=== PATIENT | female | born 2000 | race Caucasian/White ===

== ENCOUNTER 2019-09-26 04:54 | Inpatient (IN) | payer OTHER ==
[2019-09-26] MEDS ORDERED: Terbutaline 1 MG/ML SDV SUBCUT PRN (12:13)
[2019-09-26] MEDS ORDERED: Misoprostol 200 MCG Tab PO PRN (12:13)
[2019-09-26] MEDS ORDERED: Dinoprostone 10 MG Insert VAG PRN (12:13)
[2019-09-26] MEDS ORDERED: Tranexamic Acid 1,000 MG in Sodium Chloride 0.9% 100 ML IV PRN (12:13)
[2019-09-26] MEDS ORDERED: Lidocaine 1% 50 ML MDV INJECT PRN (12:13)
[2019-09-26] MEDS ORDERED: Sodium Chloride 0.9% 2.5 ML Syringe FLUSH PRN (12:13)
[2019-09-26] MEDS ORDERED: Sodium Chloride 0.9% 10 ML SDV IV PRN (12:13)
[2019-09-26] MEDS ORDERED: Ondansetron 4 MG/2 ML SDV IVPUSH PRN (12:13)
[2019-09-26] MEDS ORDERED: Methylergonovine 0.2 MG/1 ML Amp IM PRN (12:13)
[2019-09-26] MEDS ORDERED: Water For Irrigation,Sterile 1,000 ML Container IRR PRN (12:13)
[2019-09-26] MEDS ORDERED: Sodium Chloride 0.9% 10 ML Syringe FLUSH PRN (12:13)
[2019-09-26] MEDS ORDERED: Carboprost Tromethamine 250 MCG/1 ML Amp IM PRN (12:13)
[2019-09-26] MEDS ORDERED: Nalbuphine 10 MG/1 ML Vial IVPUSH PRN (12:13)
[2019-09-26] MEDS ORDERED: Oxytocin/0.9 % Sodium Chloride 30 UNIT/500 ML BAG IV SCH ×2 (12:15)
[2019-09-26] MEDS ORDERED: Misoprostol 25 MCG (1/4 of 100 MCG) Tab VAG PRN (16:00)
[2019-09-26] MEDS: Misoprostol 25 MCG (1/4 of 100 MCG) Tab VAG PRN (20:35)
[2019-09-27] MEDS: Butorphanol 1 MG/ML SDV IVPUSH PRN ×2 (02:15→10:47)
[2019-09-27] MEDS: Misoprostol 25 MCG (1/4 of 100 MCG) Tab VAG PRN ×4 (02:27→21:12)
[2019-09-27] MEDS: Lactated Ringers 1,000 ML IV SCH (02:59)
[2019-09-27] MEDS ORDERED: hydrOXYzine Pamoate 25 MG Cap PO ONE (10:55)
[2019-09-27] MEDS: hydrOXYzine Pamoate 25 MG Cap PO PRN ×2 (16:53→22:28)
[2019-09-28] MEDS: Misoprostol 25 MCG (1/4 of 100 MCG) Tab VAG PRN (03:09)
[2019-09-28] MEDS: Butorphanol 1 MG/ML SDV IVPUSH PRN ×3 (08:20→17:52)
[2019-09-28] MEDS: Lactated Ringers 1,000 ML IV SCH ×3 (11:51→20:12)
[2019-09-28] MEDS ORDERED: Ropivacaine HCl/PF 100 ML ONE (19:40)
[2019-09-28] MEDS ORDERED: fentaNYL 100 MCG/2 ML SDV ONE (19:40)
--- NOTE | 2019-09-28 20:05 | PCM.PREANE ---
Preanesthetic Assessment - Anesthesia/Transfusion/Family Hx Anesthesia History: Prior Anesthesia Without Reaction Family History of Anesthesia Reaction: No Transfusion History: No Prior Transfusion(s) - Physical Assessment NPO Status Date: 09/28/19 NPO Status Time: 12:00 Height: 1.47 m Weight: 87.09 kg ASA Class: 1 - Lab Values: Laboratory Last Values WBC 11.98 K/uL (4.0-11.0) H 09/26/19 13:00 RBC 4.14 M/uL (4.30-5.90) L 09/26/19 13:00 Hgb 12.2 g/dL (12.0-16.0) 09/26/19 13:00 Hct 37.6 % (36.0-46.0) 09/26/19 13:00 MCV 90.8 fL (80.0-98.0) 09/26/19 13:00 MCH 29.5 pg (27.0-32.0) 09/26/19 13:00 MCHC 32.4 g/dL (31.0-37.0) 09/26/19 13:00 RDW Std Deviation 51.1 fl (28.0-62.0) 09/26/19 13:00 RDW Coeff of Mirella 16 % (11.0-15.0) H 09/26/19 13:00 Plt Count 234 K/uL (150-400) 09/26/19 13:00 MPV 12.10 fL (7.40-12.00) H 09/26/19 13:00 Nucleated RBC % 0.0 /100WBC 09/26/19 13:00 Nucleated RBCs # 0 K/uL 09/26/19 13:00 Blood Type A POSITIVE 09/26/19 13:00 Antibody Screen NEGATIVE 09/26/19 13:00 - Allergies Allergies/Adverse Reactions: Allergies Allergy/AdvReac Type Severity Reaction Status Date / Time hayfever Allergy Difficulty Uncoded 09/26/19 12:25 Breathing - Acknowledgements Anesthesia Type Planned: Epidural Pt an Appropriate Candidate for the Planned Anesthesia: Yes Alternatives and Risks of Anesthesia Discussed w Pt/Guardian: Yes Pt/Guardian Understands and Agrees with Anesthesia Plan: Yes PreAnesthesia Questionnaire Respiratory History: Reports: Asthma 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: Endocrine/Metabolic History: Reports: Obesity/BMI 30+ Dermatologic History: Reports: None - Past Surgical History Respiratory Surgical History: Reports: None Endocrine Surgical History: Reports: None Dermatological Surgical History: Reports: Other (See Below) - SUBSTANCE USE Smoking Status *Q: Never Smoker Second Hand Smoke Exposure: No Recreational Drug Use History: No - HOME MEDS Home Medications: Home Meds Inhaler For Asthma 0 08/05/15 [History] Albuterol Sulfate [Proair Digihaler] 09/26/19 [History] Vits #93/Iron Fum/FA [ Formula Tablet] 1 each PO DAILY [History] - CURRENT (IN HOUSE) MEDS Current Meds: Current Medications Butorphanol Tartrate (Stadol) 1 mg IVPUSH Q1H PRN PRN Reason: Pain Last Admin: 09/28/19 17:52 Dose: 1 mg Carboprost Tromethamine (Hemabate Ds) 250 mcg IM ASDIRECTED PRN PRN Reason: Post Hemorrhage Dinoprostone (Cervidil) 10 mg VAG ONETIME PRN PRN Reason: Cervical Ripening Hydroxyzine Pamoate (Vistaril) 50 mg PO Q6H PRN PRN Reason: Pain Last Admin: 09/27/19 22:28 Dose: 50 mg Lactated Ringer's (Ringers, Lactated) 1,000 mls @ 150 mls/hr IV ASDIRECTED LUIS DANIEL Last Admin: 09/28/19 14:28 Dose: 125 mls/hr Oxytocin/Sodium Chloride (Oxytocin 30 Unit/500 Ml-Ns) 30 unit in 500 mls @ 999 mls/hr IV TITRATE LUIS DANIEL Oxytocin/Sodium Chloride (Oxytocin 30 Unit/500 Ml-Ns) 30 unit in 500 mls @ 2 mls/hr IV TITRATE LUIS DANIEL; Protocol Last Titration: 09/28/19 16:20 Dose: 6 munits/min, 6 mls/hr Tranexamic Acid 1,000 mg/ (Sodium Chloride) 110 mls @ 660 mls/hr IV ONETIME PRN PRN Reason: Bleeding Lidocaine HCl (Xylocaine 1%) 50 ml INJECT ONETIME PRN PRN Reason: Laceration repair Methylergonovine Maleate (Methergine) 0.2 mg IM ASDIRECTED PRN PRN Reason: Post Hemorrhage Misoprostol (Cytotec) 200 mcg PO ONETIME PRN PRN Reason: Post Hemorrhage Misoprostol (Cytotec) 25 mcg VAG ONETIME PRN PRN Reason: Cervical Ripening Last Admin: 09/26/19 16:41 Dose: 25 mcg Misoprostol (Cytotec) 25 mcg VAG Q4H PRN PRN Reason: Cervical Ripening Last Admin: 09/28/19 03:09 Dose: 25 mcg Nalbuphine HCl (Nubain) 10 mg IVPUSH Q1H PRN PRN Reason: Pain (severe 7-10) Ondansetron HCl (Zofran) 4 mg IVPUSH Q6H PRN PRN Reason: Nausea/Vomiting Last Admin: 09/27/19 10:47 Dose: 4 mg Sodium Chloride (Saline Flush) 10 ml FLUSH ASDIRECTED PRN PRN Reason: Keep Vein Open Sodium Chloride (Saline Flush) 2.5 ml FLUSH ASDIRECTED PRN PRN Reason: Keep Vein Open Sodium Chloride (Normal Saline) 10 ml IV ASDIRECTED PRN PRN Reason: IV Use Sterile Water (Sterile Water For Irrigation) 1,000 ml IRR ASDIRECTED PRN PRN Reason: delivery Last Admin: 09/28/19 06:39 Dose: 1,000 ml Terbutaline Sulfate (Brethine) 0.25 mg SUBCUT ASDIRECTED PRN PRN Reason: Tacysystole Discontinued Medications Fentanyl (Sublimaze) Confirm Administered Dose 100 mcg .ROUTE .STK-MED ONE Stop: 09/28/19 19:41 Hydroxyzine Pamoate (Vistaril) 50 mg PO ONETIME ONE Stop: 09/27/19 10:56 Last Admin: 09/27/19 11:11 Dose: 50 mg Ropivacaine (Naropin 0.2%) Confirm Administered Dose 100 mls @ as directed .ROUTE .STK-MED ONE Stop: 09/28/19 19:41
--- NOTE | 2019-09-28 20:08 | PCM.PRNOTE ---
- Free Text/Narrative Note: Anes Note Patietn requests epidural for L&D. Sitting position, level L3-L4 midlines approach. Sterile technique. Chloraprep scrub to lumbar area. Sterile fenestrated drape applied. Epidural space easily achieved using JAREK technique. JAREK at 4 cm. Cath threaded 5 cm with ease. Cath secured at 10 cm at skin using sterile clear adhesive dressing. Test 1942 3 cc 1.5 lido with epi negative 1944 10 cc 0.2% ropivicaine with 1 mcg cc fentayl in slow divided doses. 1949 Pump started with 90 cc same solution at 8 cc hr with 6 cc q 20 min prn bolus. Nishant well. 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
[2019-09-29] MEDS ORDERED: Ampicillin/Sulbactam Na 3 GM in Sodium Chloride 0.9% 100 ML IV ONE (03:36)
[2019-09-29] MEDS ORDERED: Acetaminophen 500 MG Tab PO ONE (03:36)
[2019-09-29] MEDS ORDERED: Sodium Chloride 0.9% 100 ML ONE (03:41)
[2019-09-29] MEDS ORDERED: Acetaminophen 650 MG Supp RECTAL ONE (04:08)
[2019-09-29] MEDS ORDERED: Bupivacaine 0.5% 30 ML SDV ONE (04:29)
[2019-09-29] MEDS ORDERED: Morphine PF 10 MG/10 ML SDV ONE (04:30)
[2019-09-29] MEDS ORDERED: Sodium Chloride 0.9% 20 ML ONE (04:30)
[2019-09-29] MEDS ORDERED: ceFAZolin 1 GM Vial ONE (04:30)
[2019-09-29] MEDS ORDERED: Ketorolac 30 MG/ML SDV ONE (04:36)
[2019-09-29] MEDS ORDERED: Oxytocin 10 Units/1 ML SDV ONE (04:36)
[2019-09-29] MEDS ORDERED: Ondansetron 4 MG/2 ML SDV ONE (04:36)
[2019-09-29] MEDS ORDERED: Phenylephrine/Normal Saline 100 MCG/ML 10 ML Syringe ONE (04:36)
[2019-09-29] MEDS: Ketorolac 30 MG/ML SDV IVPUSH SCH ×3 (05:00→18:23)
[2019-09-29] MEDS ORDERED: Octyl 2-Cyanoacrylate 1 Tube ONE (05:15)
[2019-09-29] MEDS ORDERED: Nalbuphine 10 MG/1 ML Vial IVPUSH PRN (05:27)
[2019-09-29] MEDS ORDERED: Ondansetron 4 MG/2 ML SDV IVPUSH PRN ×2 (05:27→05:37)
[2019-09-29] MEDS ORDERED: diphenhydrAMINE 50 MG/ML SDV IVPUSH PRN ×2 (05:27→05:37)
[2019-09-29] MEDS ORDERED: fentaNYL 100 MCG/2 ML SDV IVPUSH PRN (05:27)
[2019-09-29] MEDS ORDERED: Naloxone 0.4 MG/ML Syringe IVPUSH PRN (05:27)
[2019-09-29] MEDS ORDERED: Acetaminophen/oxyCODONE 325-5 MG Tab PO PRN ×2 (05:27→05:37)
--- NOTE | 2019-09-29 05:35 | PCM.OPNOTE ---
- General Post-Op/Procedure Note Date of Surgery/Procedure: 09/29/19 Operative Procedure(s): primary low transverse Findings: Liveborn male 06/16 3330 grams Pre Op Diagnosis: 41 3/7 weeks, intolerance to labor Post-Op Diagnosis: Same Anesthesia Technique: Epidural Primary Surgeon: Monse Zavala Anesthesia Provider: Javid Soto Instrument Repair Specialist: Matt Bello Pathology: placenta to pathology. Fluid Replacement, Intraop: 1,500 Output, Urine Amount: 80 EBL in mLs: 500 Complications: None Known Condition: Good
[2019-09-29] MEDS ORDERED: Oxytocin 10 Units/1 ML SDV IM PRN (05:37)
[2019-09-29] MEDS ORDERED: Misoprostol 200 MCG Tab RECTAL PRN (05:37)
[2019-09-29] MEDS ORDERED: Bisacodyl 10 MG Supp RECTAL PRN (05:37)
[2019-09-29] MEDS ORDERED: Tranexamic Acid 1,000 MG in Sodium Chloride 0.9% 100 ML IV PRN (05:37)
[2019-09-29] MEDS ORDERED: Lanolin 100% Cream 7 GM Tube TOP PRN (05:37)
[2019-09-29] MEDS ORDERED: Oxytocin/Lactated Ringers 30 UNIT/500 ML BAG IV SCH (05:45)
--- NOTE | 2019-09-29 06:16 | PCM.POSTAN ---
POST ANESTHESIA ASSESSMENT - MENTAL STATUS Mental Status: Alert - VITAL SIGNS Vital Signs: Last Vital Signs Temp 37.1 C 09/29/19 05:30 Pulse 74 09/29/19 06:10 Resp 22 H 09/29/19 06:10 BP 93/36 L 09/29/19 06:10 Pulse Ox 96 09/29/19 06:10 - RESPIRATORY Respiratory Status: Respiratory Rate WNL - CARDIOVASCULAR CV Status: Pulse Rate WNL - GASTROINTESTINAL GI Status: No Symptoms - POST OP HYDRATION Hydration Status: Adequate & Stable
[2019-09-29] MEDS: Lactated Ringers 1,000 ML IV SCH ×3 (06:46→20:33)
--- NOTE | 2019-09-29 07:12 | OR ---
SURGEON: Monse Zavala M.D. DATE OF PROCEDURE: 09/29/2019 PREOPERATIVE DIAGNOSES: 1. 41 and 3/7 weeks intrauterine . 2. intolerance to labor. POSTOPERATIVE DIAGNOSES: 1. 41 and 3/7 weeks intrauterine . 2. intolerance to labor. PROCEDURE: Primary low-transverse section. ANESTHESIA: Epidural. ESTIMATED BLOOD LOSS: 500 mL. FLUIDS: 1500 mL crystalloid. FINDINGS: Live-born male, scores 9 and 9, weight of 3330 g, ROP position, normal- appearing pelvis. COMPLICATIONS: None known. DISPOSITION: Stable to recovery. BRIEF HISTORY: This is a 19-year-old female, G1, P0. She presents at 41 weeks' gestation for induction of labor. Plan initially was to do Cervidil as she does have some [id number] asthma. However, Cervidil was unavailable, and after discussion of options, she did desire to proceed with Cytotec. She was initially closed, thick, and high with normal heart tones. She received 5 doses of Cytotec. At this point, her cervix was 1 cm, 50%, -2 station. A balloon catheter could be placed and was filled with 60 mL of saline on each side of the cervix. She was started on Pitocin, and within 5 to 6 hours, she was 4 cm, 40% effaced, -2 station. She was started on Pitocin. At approximately 5 p.m. when she was 5 to 6 cm, artificial rupture of membranes was performed with clear fluid noted. She did receive an epidural for pain control. She had received multiple doses of stadol throughout labor as well as Vistaril as she was trying to avoid epidural. After the epidural, she progressed to a 9+ dilatation. She was still at a -2 station. She was felt to be complete and therefore was allowed to push. She pushed over a 45-minute time period with severe deep variable decelerations with rebound tachycardia with each push. She was noted to be in the AKIN position. I did attempt to rotate to AKIN and the head partially turned, but I was unable to completely rotate. At this point, given no descent of the head, the fact that there was intolerance to pushing with category 2 bordering on category 3 heart tones which did recover when she discontinued pushing. Additionally, her temperature was 100.3, and she had chills. She was given Tylenol and Unasyn. She was given option for rest followed by repeat attempt at pushing, restarting Pitocin, or proceeding with a primary . She desires to proceed with a primary with risks discussed including bleeding, infection, injury to bowel, bladder, blood vessels or other organs, risk of thromboembolic event, and risk of anesthesia. Understanding all these risks, she does desire to proceed. DESCRIPTION OF PROCEDURE: With the patient in left tilt position, under adequate epidural analgesia, the abdomen was prepped with chlorhexidine and draped in a usual fashion for abdominal surgery. SCDs were in place. Heart catheter had been placed. She had received Unasyn prior due to the temperature of 100.3, but also received Ancef 2 g immediately prior to the surgery. After documentation of adequate analgesia and an appropriate time-out had been held, a transverse curvilinear incision was made 2 cm cephalad from the pubic symphysis and carried through the subcutaneous tissue to the fascia, which was scored transversely in the midline. The fascial incision was extended laterally using curved Serrano scissors and the fascia was elevated from the underlying rectus muscle using sharp and blunt dissection. The rectus muscles were in the midline using sharp and blunt dissection. A finger was used to enter the peritoneal cavity. The incision was extended using blunt dissection. The Lamonte O retractor was placed. The visceroperitoneum over the lower uterine segment was incised to develop an adequate bladder flap. A transverse curvilinear incision was made over the lower uterine segment and a finger was used to enter the amniotic cavity. Clear fluid was noted. The incision was extended cephalad caudad using blunt dissection. The head was delivered via the uterine incision without any difficulty. The was bulb suctioned by nose and mouth. The remainder of the was delivered, and after 1-minute, the cord was doubly clamped and cut. The infant was handed to the nurse in attendance at delivery. The infant was a liveborn male, score 9 and 9, weighing 3330 g. Cord blood was collected for cord ABGs as well as routine cord blood sampling. Pitocin was initiated after delivery of the to assist with delivery. The placenta was delivered with manual assistance. The uterus was cleaned with a dry laparotomy tape. The uterine incision was closed with a running lock suture of 0 Polysorb followed by an imbricating layer of 0 Polysorb. There was a single [id number] suture placed in the midline for complete hemostasis. The paracolic gutters and posterior cul-de-sac were cleaned with a dry laparotomy tape. The tubes and ovaries were inspected and appeared normal. The uterine incision was inspected and was hemostatic. Therefore, the Lamonte O retractor was removed. The uterine incision was once again inspected and remained hemostatic. The rectus muscle and peritoneum were loosely approximated in the midline using a running mattress suture of 0 Polysorb. The posterior aspect of the fascia was inspected and areas of bleeding that were noted were cauterized. The fascial incision was closed with a running suture of 0 Polysorb. Subcutaneous tissue was irrigated. Any areas of bleeding that were noted were cauterized. The skin was closed with a running subcuticular suture of 3-0 Monocryl followed by Dermabond. Final sponge, needle, and instrument counts were reported as correct. There were no known complications. Mother and baby are in recovery in good condition. JAX UMAÑA /[id number]
[2019-09-29] MEDS: Ampicillin/Sulbactam Na 1.5 GM in Sodium Chloride 0.9% 50 ML IV SCH ×3 (10:32→18:33)
[2019-09-29] MEDS: Docusate Sodium 100 MG Cap PO SCH ×2 (11:04→20:30)
[2019-09-30] MEDS: Ampicillin/Sulbactam Na 1.5 GM in Sodium Chloride 0.9% 50 ML IV SCH ×4 (00:11→18:22)
[2019-09-30] MEDS: Ketorolac 30 MG/ML SDV IVPUSH SCH ×2 (00:15→05:52)
[2019-09-30] MEDS: Lactated Ringers 1,000 ML IV SCH (05:50)
--- NOTE | 2019-09-30 09:19 | PCM.PNPP ---
- General Info Date of Service: 09/30/19 Functional Status: Reports: Pain Controlled, Tolerating Diet, Ambulating, Other (Passed flatus. Has not voided since sumner was removed. Baby is having some trouble latching. ) - Review of Systems General: Reports: No Symptoms HEENT: Reports: No Symptoms Pulmonary: Reports: No Symptoms Cardiovascular: Reports: No Symptoms Gastrointestinal: Reports: No Symptoms Genitourinary: Reports: No Symptoms Musculoskeletal: Reports: No Symptoms Skin: Reports: No Symptoms Neurological: Reports: No Symptoms Psychiatric: Reports: No Symptoms - Patient Data Vital Signs - Most Recent: Last Vital Signs Temp 36.7 C 09/30/19 04:38 Pulse 81 09/30/19 05:00 Resp 17 09/30/19 05:00 BP 102/46 L 09/30/19 04:38 Pulse Ox 94 L 09/30/19 05:00 Weight - Most Recent: 192 lb I&O - Last 24 Hours: Intake & Output 09/29/19 09/30/19 09/30/19 22:59 06:59 14:59 Output Total 175 1250 Balance -175 -1250 Lab Results - Last 24 Hours: Laboratory Results - last 24 hr 09/26/19 09/30/19 Range/Units 13:00 05:51 Hgb 11.3 L (12.0-16.0) g/dL Hct 34.6 L (36.0-46.0) % RPR Non Reactive (NonRea<1:1) Med Orders - Current: Current Medications Bisacodyl (Dulcolax) 10 mg RECTAL ONETIME PRN PRN Reason: Constipation Diphenhydramine HCl (Benadryl) 25 mg IVPUSH Q6H PRN PRN Reason: Itching or Nausea Docusate Sodium (Colace) 100 mg PO BID [facility] Last Admin: 09/29/19 20:30 Dose: 100 mg Emollient Ointment (Lansinoh Hpa) 0 gm TOP ASDIRECTED PRN PRN Reason: Sore Nipples Last Admin: 09/30/19 03:10 Dose: 7 gm Ampicillin Sodium/Sulbactam (Sodium 1.5 gm/ Sodium Chloride) 50 mls @ 150 mls/ hr IV Q6H [facility] Last Admin: 09/30/19 05:52 Dose: 50 mls/hr Lactated Ringer's (Ringers, Lactated) 1,000 mls @ 125 mls/hr IV ASDIRECTED LUIS DANIEL Last Admin: 09/30/19 05:50 Dose: 125 mls/hr Oxytocin/Lactated Ringer's (Pitocin In Lr 30 Units/500 Ml) 30 unit in 500 mls @ 999 mls/hr IV TITRATE LUIS DANIEL; Protocol Tranexamic Acid 1,000 mg/ (Sodium Chloride) 110 mls @ 660 mls/hr IV ONETIME PRN PRN Reason: Bleeding Ibuprofen (Motrin) 800 mg PO Q8H PRN PRN Reason: mild pain or fever Misoprostol (Cytotec) 1,000 mcg RECTAL ONETIME PRN PRN Reason: excessive bleeding Ondansetron HCl (Zofran) 4 mg IVPUSH Q4H PRN PRN Reason: Nausea/Vomiting Last Admin: 09/29/19 04:30 Dose: 4 mg Oxycodone/Acetaminophen (Percocet 325-5 Mg) 1 tab PO Q4H PRN PRN Reason: Pain (moderate 4-6) Oxycodone/Acetaminophen (Percocet 325-5 Mg) 2 tab PO Q4H PRN PRN Reason: Pain (moderate 4-6) Oxytocin (Pitocin) 10 unit IM ASDIRECTED PRN PRN Reason: Excessive Vaginal Bleeding Discontinued Medications Acetaminophen (Tylenol Extra Strength) 1,000 mg PO ONETIME ONE Stop: 09/29/19 03:37 Last Admin: 09/29/19 03:47 Dose: 1,000 mg Acetaminophen (Tylenol) 650 mg RECTAL NOW ONE Stop: 09/29/19 04:09 Bupivacaine HCl (Marcaine 0.5%) Confirm Administered Dose 30 ml .ROUTE .STK-MED ONE Stop: 09/29/19 04:30 Butorphanol Tartrate (Stadol) 1 mg IVPUSH Q1H PRN PRN Reason: Pain Last Admin: 09/28/19 17:52 Dose: 1 mg Carboprost Tromethamine (Hemabate Ds) 250 mcg IM ASDIRECTED PRN PRN Reason: Post Hemorrhage Cefazolin Sodium (Ancef) Confirm Administered Dose 2 gm .ROUTE .STK-MED ONE Stop: 09/29/19 04:31 Dinoprostone (Cervidil) 10 mg VAG ONETIME PRN PRN Reason: Cervical Ripening Diphenhydramine HCl (Benadryl) 25 mg IVPUSH Q4H PRN PRN Reason: Itching Stop: 09/30/19 05:27 Fentanyl (Sublimaze) Confirm Administered Dose 100 mcg .ROUTE .STK-MED ONE Stop: 09/28/19 19:41 Fentanyl (Sublimaze) 50 mcg IVPUSH Q1H PRN PRN Reason: Pain (severe 7-10) Hydroxyzine Pamoate (Vistaril) 50 mg PO ONETIME ONE Stop: 09/27/19 10:56 Last Admin: 09/27/19 11:11 Dose: 50 mg Hydroxyzine Pamoate (Vistaril) 50 mg PO Q6H PRN PRN Reason: Pain Last Admin: 09/27/19 22:28 Dose: 50 mg Lactated Ringer's (Ringers, Lactated) 1,000 mls @ 150 mls/hr IV ASDIRECTED LUIS DANIEL Last Admin: 09/28/19 20:12 Dose: 125 mls/hr Oxytocin/Sodium Chloride (Oxytocin 30 Unit/500 Ml-Ns) 30 unit in 500 mls @ 999 mls/hr IV TITRATE LUIS DANIEL Oxytocin/Sodium Chloride (Oxytocin 30 Unit/500 Ml-Ns) 30 unit in 500 mls @ 2 mls/hr IV TITRATE LUIS DANIEL; Protocol Last Titration: 09/28/19 21:59 Dose: 10 munits/min, 10 mls/hr Tranexamic Acid 1,000 mg/ (Sodium Chloride) 110 mls @ 660 mls/hr IV ONETIME PRN PRN Reason: Bleeding Ropivacaine (Naropin 0.2%) Confirm Administered Dose 100 mls @ as directed .ROUTE .STK-MED ONE Stop: 09/28/19 19:41 Ampicillin Sodium/Sulbactam (Sodium 3 gm/ Sodium Chloride) 100 mls @ 200 mls/ hr IV ONETIME ONE Stop: 09/29/19 04:05 Last Admin: 09/29/19 03:48 Dose: 200 mls/hr Sodium Chloride (Normal Saline) Confirm Administered Dose 100 mls @ as directed .ROUTE .STK-MED ONE Stop: 09/29/19 03:42 Sodium Chloride (Normal Saline) Confirm Administered Dose 20 mls @ as directed .ROUTE .STK-MED ONE Stop: 09/29/19 04:31 Ketorolac Tromethamine (Toradol) Confirm Administered Dose 30 mg .ROUTE .STK- MED ONE Stop: 09/29/19 04:37 Ketorolac Tromethamine (Toradol) 30 mg IVPUSH Q6H LUIS DANIEL Stop: 09/30/19 05:31 Last Admin: 09/30/19 05:52 Dose: 30 mg Lidocaine HCl (Xylocaine 1%) 50 ml INJECT ONETIME PRN PRN Reason: Laceration repair Methylergonovine Maleate (Methergine) 0.2 mg IM ASDIRECTED PRN PRN Reason: Post Hemorrhage Misoprostol (Cytotec) 200 mcg PO ONETIME PRN PRN Reason: Post Hemorrhage Misoprostol (Cytotec) 25 mcg VAG ONETIME PRN PRN Reason: Cervical Ripening Last Admin: 09/26/19 16:41 Dose: 25 mcg Misoprostol (Cytotec) 25 mcg VAG Q4H PRN PRN Reason: Cervical Ripening Last Admin: 09/28/19 03:09 Dose: 25 mcg Morphine Sulfate (Duramorph Pf) Confirm Administered Dose 10 mg .ROUTE .STK-MED ONE Stop: 09/29/19 04:31 Nalbuphine HCl (Nubain) 10 mg IVPUSH Q1H PRN PRN Reason: Pain (severe 7-10) Nalbuphine HCl (Nubain) 5 mg IVPUSH ASDIRECTED PRN PRN Reason: Itching Naloxone HCl (Narcan) 0.1 mg IVPUSH ONETIME PRN PRN Reason: Respiratory Depression Stop: 09/30/19 05:27 Octyl Cyanoacrylate (Dermabond Advance) Confirm Administered Dose 1 applic .ROUTE .STK-MED ONE Stop: 09/29/19 05:16 Ondansetron HCl (Zofran) 4 mg IVPUSH Q6H PRN PRN Reason: Nausea/Vomiting Last Admin: 09/27/19 10:47 Dose: 4 mg Ondansetron HCl (Zofran) Confirm Administered Dose 4 mg .ROUTE .STK-MED ONE Stop: 09/29/19 04:37 Ondansetron HCl (Zofran) 4 mg IVPUSH Q6H PRN PRN Reason: Nausea Oxycodone/Acetaminophen (Percocet 325-5 Mg) 2 tab PO Q6H PRN PRN Reason: Pain (moderate 4-6) Oxytocin (Pitocin) Confirm Administered Dose 20 unit .ROUTE .STK-MED ONE Stop: 09/29/19 04:37 Phenylephrine HCl (Phenylephrine In Ns 100 Mcg/Ml) Confirm Administered Dose 1 mg .ROUTE .STK-MED ONE Stop: 09/29/19 04:37 Sodium Chloride (Saline Flush) 10 ml FLUSH ASDIRECTED PRN PRN Reason: Keep Vein Open Sodium Chloride (Saline Flush) 2.5 ml FLUSH ASDIRECTED PRN PRN Reason: Keep Vein Open Sodium Chloride (Normal Saline) 10 ml IV ASDIRECTED PRN PRN Reason: IV Use Sterile Water (Sterile Water For Irrigation) 1,000 ml IRR ASDIRECTED PRN PRN Reason: delivery Last Admin: 09/28/19 06:39 Dose: 1,000 ml Terbutaline Sulfate (Brethine) 0.25 mg SUBCUT ASDIRECTED PRN PRN Reason: Tacysystole - Infant Interaction Infant Disposition, : [place] at Bedside Infant Interaction: Holding Feeding: Attempted ; Nursed Fair/Poor Support Person: Mother - Recovery Exam Fundal Tone: Firm Fundal Level: At Umbilicus Fundal Placement: Midline Lochia Amount: Scant Lochia Color: Rubra/Red Perineum Description: Intact, Minimal Bruising/Swelling Episiotomy/Laceration: None Bladder Status: Indwelling Catheter in Place Urinary Elimination: Indwelling Catheter - Exam General: Alert, Oriented, Cooperative, No Acute Distress HEENT: Pupils Equal, Pupils Reactive Neck: Supple, Trachea Midline, No JVD Lungs: Normal Respiratory Effort GI/Abdominal Exam: Normal Bowel Sounds, Soft, No Distention Extremities: Normal Inspection, Normal Range of Motion, Non-Tender, No Pedal Edema Skin: Warm, Dry, Intact Wound/Incisions: Dressing Dry and Intact Neurological: No New Focal Deficit Psy/Mental Status: Alert, Normal Affect, Normal Mood - Problem List Review Problem List Initiated/Reviewed/Updated: Yes - Assessment Assessment:: 19yo POD1 s/p primary for failure to descend and intolerance of labor. Stable and recovering well. - Plan Plan:: Hgb stable, no s/s of anemia. Pain controlled, ambulating. Passing flatus. Continue inpatient management.
[2019-09-30] MEDS: Docusate Sodium 100 MG Cap PO SCH ×2 (09:40→21:29)
[2019-09-30] MEDS: Ibuprofen 800 MG Tab PO PRN (14:37)
[2019-09-30] MEDS: Acetaminophen/oxyCODONE 325-5 MG Tab PO PRN ×2 (14:38→21:29)
[2019-10-01] MEDS: Acetaminophen/oxyCODONE 325-5 MG Tab PO PRN ×3 (02:16→14:02)
[2019-10-01] MEDS: Ibuprofen 800 MG Tab PO PRN ×2 (02:17→10:37)
[2019-10-01] MEDS: Docusate Sodium 100 MG Cap PO SCH (08:44)
[2019-10-01 09:23] VITALS: PULSE 77
--- NOTE | 2019-10-01 09:34 | PCM48HPAN ---
Post Anesthesia Note - EVALUATION WITHIN 48HRS OF ANESTHETIC Vital Signs in Normal Range: Yes Patient Participated in Evaluation: Yes Respiratory Function Stable: Yes Airway Patent: Yes Cardiovascular Function Stable: Yes Hydration Status Stable: Yes Pain Control Satisfactory: Yes Nausea and Vomiting Control Satisfactory: Yes Mental Status Recovered: Yes Vital Signs: Last Vital Signs Temp 97.8 F 10/01/19 09:22 Pulse 77 10/01/19 09:22 Resp 16 10/01/19 09:22 BP 97/54 L 10/01/19 09:22 Pulse Ox 97 10/01/19 09:22
[2019-10-01] MEDS ORDERED: Furosemide 20 MG Tab PO ONE (11:32)
--- NOTE | 2019-10-01 11:39 | PCM.PNPP ---
- General Info Date of Service: 10/01/19 Functional Status: Reports: Pain Controlled, Tolerating Diet, Ambulating, Urinating, Other (passing flatus. Noticed increased swelling in both her legs, hard to move, denies pain. ) - Review of Systems General: Reports: No Symptoms HEENT: Reports: No Symptoms Pulmonary: Reports: No Symptoms Cardiovascular: Reports: No Symptoms Gastrointestinal: Reports: No Symptoms Genitourinary: Reports: No Symptoms Musculoskeletal: Reports: No Symptoms Skin: Reports: No Symptoms Neurological: Reports: No Symptoms Psychiatric: Reports: No Symptoms - Patient Data Vital Signs - Most Recent: Last Vital Signs Temp 36.6 C 10/01/19 09:22 Pulse 77 10/01/19 09:22 Resp 16 10/01/19 09:22 BP 97/54 L 10/01/19 09:22 Pulse Ox 97 10/01/19 09:22 Weight - Most Recent: 192 lb Med Orders - Current: Current Medications Bisacodyl (Dulcolax) 10 mg RECTAL ONETIME PRN PRN Reason: Constipation Diphenhydramine HCl (Benadryl) 25 mg IVPUSH Q6H PRN PRN Reason: Itching or Nausea Docusate Sodium (Colace) 100 mg PO BID LUIS DANIEL Last Admin: 10/01/19 08:44 Dose: 100 mg Emollient Ointment (Lansinoh Hpa) 0 gm TOP ASDIRECTED PRN PRN Reason: Sore Nipples Last Admin: 09/30/19 03:10 Dose: 7 gm Furosemide (Lasix) 20 mg PO ONETIME ONE Stop: 10/01/19 11:33 Lactated Ringer's (Ringers, Lactated) 1,000 mls @ 125 mls/hr IV ASDIRECTED LUIS DANIEL Last Infusion: 09/30/19 07:25 Dose: 50 mls/hr Oxytocin/Lactated Ringer's (Pitocin In Lr 30 Units/500 Ml) 30 unit in 500 mls @ 999 mls/hr IV TITRATE LUIS DANIEL; Protocol Tranexamic Acid 1,000 mg/ (Sodium Chloride) 110 mls @ 660 mls/hr IV ONETIME PRN PRN Reason: Bleeding Ibuprofen (Motrin) 800 mg PO Q8H PRN PRN Reason: mild pain or fever Last Admin: 10/01/19 10:37 Dose: 800 mg Misoprostol (Cytotec) 1,000 mcg RECTAL ONETIME PRN PRN Reason: excessive bleeding Ondansetron HCl (Zofran) 4 mg IVPUSH Q4H PRN PRN Reason: Nausea/Vomiting Last Admin: 09/29/19 04:30 Dose: 4 mg Oxycodone/Acetaminophen (Percocet 325-5 Mg) 1 tab PO Q4H PRN PRN Reason: Pain (moderate 4-6) Last Admin: 10/01/19 08:13 Dose: 1 tab Oxycodone/Acetaminophen (Percocet 325-5 Mg) 2 tab PO Q4H PRN PRN Reason: Pain (moderate 4-6) Last Admin: 09/30/19 09:40 Dose: 2 tab Oxytocin (Pitocin) 10 unit IM ASDIRECTED PRN PRN Reason: Excessive Vaginal Bleeding Discontinued Medications Acetaminophen (Tylenol Extra Strength) 1,000 mg PO ONETIME ONE Stop: 09/29/19 03:37 Last Admin: 09/29/19 03:47 Dose: 1,000 mg Acetaminophen (Tylenol) 650 mg RECTAL NOW ONE Stop: 09/29/19 04:09 Last Admin: 09/30/19 19:32 Dose: Not Given Bupivacaine HCl (Marcaine 0.5%) Confirm Administered Dose 30 ml .ROUTE .STK-MED ONE Stop: 09/29/19 04:30 Last Admin: 09/30/19 19:32 Dose: Not Given Butorphanol Tartrate (Stadol) 1 mg IVPUSH Q1H PRN PRN Reason: Pain Last Admin: 09/28/19 17:52 Dose: 1 mg Carboprost Tromethamine (Hemabate Ds) 250 mcg IM ASDIRECTED PRN PRN Reason: Post Hemorrhage Cefazolin Sodium (Ancef) Confirm Administered Dose 2 gm .ROUTE .STK-MED ONE Stop: 09/29/19 04:31 Dinoprostone (Cervidil) 10 mg VAG ONETIME PRN PRN Reason: Cervical Ripening Diphenhydramine HCl (Benadryl) 25 mg IVPUSH Q4H PRN PRN Reason: Itching Stop: 09/30/19 05:27 Fentanyl (Sublimaze) Confirm Administered Dose 100 mcg .ROUTE .STK-MED ONE Stop: 09/28/19 19:41 Last Admin: 09/30/19 19:34 Dose: Not Given Fentanyl (Sublimaze) 50 mcg IVPUSH Q1H PRN PRN Reason: Pain (severe 7-10) Hydroxyzine Pamoate (Vistaril) 50 mg PO ONETIME ONE Stop: 09/27/19 10:56 Last Admin: 09/27/19 11:11 Dose: 50 mg Hydroxyzine Pamoate (Vistaril) 50 mg PO Q6H PRN PRN Reason: Pain Last Admin: 09/27/19 22:28 Dose: 50 mg Lactated Ringer's (Ringers, Lactated) 1,000 mls @ 150 mls/hr IV ASDIRECTED LUIS DANIEL Last Admin: 09/28/19 20:12 Dose: 125 mls/hr Oxytocin/Sodium Chloride (Oxytocin 30 Unit/500 Ml-Ns) 30 unit in 500 mls @ 999 mls/hr IV TITRATE LUIS DANIEL Oxytocin/Sodium Chloride (Oxytocin 30 Unit/500 Ml-Ns) 30 unit in 500 mls @ 2 mls/hr IV TITRATE LUIS DANIEL; Protocol Last Titration: 09/28/19 21:59 Dose: 10 munits/min, 10 mls/hr Tranexamic Acid 1,000 mg/ (Sodium Chloride) 110 mls @ 660 mls/hr IV ONETIME PRN PRN Reason: Bleeding Ropivacaine (Naropin 0.2%) Confirm Administered Dose 100 mls @ as directed .ROUTE .STK-MED ONE Stop: 09/28/19 19:41 Last Admin: 09/30/19 19:34 Dose: Not Given Ampicillin Sodium/Sulbactam (Sodium 3 gm/ Sodium Chloride) 100 mls @ 200 mls/ hr IV ONETIME ONE Stop: 09/29/19 04:05 Last Admin: 09/29/19 03:48 Dose: 200 mls/hr Sodium Chloride (Normal Saline) Confirm Administered Dose 100 mls @ as directed .ROUTE .STK-MED ONE Stop: 09/29/19 03:42 Last Admin: 09/30/19 19:32 Dose: Not Given Sodium Chloride (Normal Saline) Confirm Administered Dose 20 mls @ as directed .ROUTE .STK-MED ONE Stop: 09/29/19 04:31 Ampicillin Sodium/Sulbactam (Sodium 1.5 gm/ Sodium Chloride) 50 mls @ 150 mls/ hr IV Q6H LUIS DANIEL Last Admin: 09/30/19 18:22 Dose: 50 mls/hr Ketorolac Tromethamine (Toradol) Confirm Administered Dose 30 mg .ROUTE .STK- MED ONE Stop: 09/29/19 04:37 Ketorolac Tromethamine (Toradol) 30 mg IVPUSH Q6H [facility] Stop: 09/30/19 05:31 Last Admin: 09/30/19 05:52 Dose: 30 mg Lidocaine HCl (Xylocaine 1%) 50 ml INJECT ONETIME PRN PRN Reason: Laceration repair Methylergonovine Maleate (Methergine) 0.2 mg IM ASDIRECTED PRN PRN Reason: Post Hemorrhage Misoprostol (Cytotec) 200 mcg PO ONETIME PRN PRN Reason: Post Hemorrhage Misoprostol (Cytotec) 25 mcg VAG ONETIME PRN PRN Reason: Cervical Ripening Last Admin: 09/26/19 16:41 Dose: 25 mcg Misoprostol (Cytotec) 25 mcg VAG Q4H PRN PRN Reason: Cervical Ripening Last Admin: 09/28/19 03:09 Dose: 25 mcg Morphine Sulfate (Duramorph Pf) Confirm Administered Dose 10 mg .ROUTE .STK-MED ONE Stop: 09/29/19 04:31 Nalbuphine HCl (Nubain) 10 mg IVPUSH Q1H PRN PRN Reason: Pain (severe 7-10) Nalbuphine HCl (Nubain) 5 mg IVPUSH ASDIRECTED PRN PRN Reason: Itching Naloxone HCl (Narcan) 0.1 mg IVPUSH ONETIME PRN PRN Reason: Respiratory Depression Stop: 09/30/19 05:27 Octyl Cyanoacrylate (Dermabond Advance) Confirm Administered Dose 1 applic .ROUTE .STK-MED ONE Stop: 09/29/19 05:16 Last Admin: 09/30/19 19:32 Dose: Not Given Ondansetron HCl (Zofran) 4 mg IVPUSH Q6H PRN PRN Reason: Nausea/Vomiting Last Admin: 09/27/19 10:47 Dose: 4 mg Ondansetron HCl (Zofran) Confirm Administered Dose 4 mg .ROUTE .STK-MED ONE Stop: 09/29/19 04:37 Ondansetron HCl (Zofran) 4 mg IVPUSH Q6H PRN PRN Reason: Nausea Oxycodone/Acetaminophen (Percocet 325-5 Mg) 2 tab PO Q6H PRN PRN Reason: Pain (moderate 4-6) Oxytocin (Pitocin) Confirm Administered Dose 20 unit .ROUTE .STK-MED ONE Stop: 09/29/19 04:37 Phenylephrine HCl (Phenylephrine In Ns 100 Mcg/Ml) Confirm Administered Dose 1 mg .ROUTE .STK-MED ONE Stop: 09/29/19 04:37 Sodium Chloride (Saline Flush) 10 ml FLUSH ASDIRECTED PRN PRN Reason: Keep Vein Open Sodium Chloride (Saline Flush) 2.5 ml FLUSH ASDIRECTED PRN PRN Reason: Keep Vein Open Sodium Chloride (Normal Saline) 10 ml IV ASDIRECTED PRN PRN Reason: IV Use Sterile Water (Sterile Water For Irrigation) 1,000 ml IRR ASDIRECTED PRN PRN Reason: delivery Last Admin: 09/28/19 06:39 Dose: 1,000 ml Terbutaline Sulfate (Brethine) 0.25 mg SUBCUT ASDIRECTED PRN PRN Reason: Tacysystole - Infant Interaction Infant Disposition, : [place] at Bedside Infant Interaction: Holding Infant Feeding: Attempted ; Nursed Fair/Poor Support Person: Mother - Recovery Exam Fundal Tone: Firm Fundal Level: At Umbilicus Fundal Placement: Midline Lochia Amount: Scant Lochia Color: Rubra/Red Perineum Description: Intact, Minimal Bruising/Swelling Episiotomy/Laceration: None Bladder Status: Voiding Urinary Elimination: Voided - Exam General: Alert, Oriented, Cooperative, No Acute Distress HEENT: Pupils Equal, Pupils Reactive Neck: Supple, Trachea Midline, No JVD Lungs: Normal Respiratory Effort GI/Abdominal Exam: Soft, Non-Tender, No Distention Extremities: Normal Range of Motion, Non-Tender, Pedal Edema (2+ nonpitting) Skin: Warm, Dry, Intact Wound/Incisions: Healing Well Neurological: No New Focal Deficit Psy/Mental Status: Alert, Normal Affect, Normal Mood - Problem List Review Problem List Initiated/Reviewed/Updated: Yes - My Orders Last 24 Hours: My Active Orders 10/01/19 11:32 Furosemide [Lasix] 20 mg PO ONETIME ONE 10/01/19 11:33 Antiembolic Devices [RC] PER UNIT ROUTINE Anti-Embolism Stockings AK [Antiembolic Hose] [OM.PC] Routine - Assessment Assessment:: 19yo POD2 s/p primary for failure to descend and intolerance of labor. Stable and recovering well. - Plan Plan:: Hgb stable at 11.3, minimal bleeding, no s/s of anemia. Pain controlled, ambulating. Passing flatus. Bilateral LE edema, low suspicion for DVTs, will given lasix 20mg PO. Stable for discharge home today. Reviewed postop care instructions, follow up at 2 and 6wks.
[2019-10-01 11:57] VITALS: BP 109/51
[2019-10-01] MEDS ORDERED: Acetaminophen/oxyCODONE 325-5 MG Tab ONE (12:12)
[2019-10-01] MEDS ORDERED: Acetaminophen/oxyCODONE 325-5 MG Tab PO SCH (12:30)
== END 2019-10-01 15:30 | disposition home or self-care (01) | DRG 788 ==
LOC: MW.OB 04:54 → UNDOADMOB 12:07 → OBSVTOIN 09-29 04:54 → MW.OB 09-29 10:05
PROVIDERS: ADMIT Obstetrics & Gynecology; ATTEND Obstetrics & Gynecology
PROC: 10D00Z1 Extraction of Products of Conception, Low, Open Approach (ICD-10-PCS; principal; 2019-09-29)
DX: O48.0 Post-term pregnancy (principal); Z3A.41 41 weeks gestation of pregnancy; Z37.0 Single live birth
CPT/HCPCS: 01967; 36415; 51702; 59025; 59200; 82803; 85014; 85018; 85027; 86593; 86850; 86900; 86901; A9270-GY; J0295; J0595; J0690; J1885; J2270; J2370; J2405; J2590; J7050; J7120